=== PATIENT | male | born 1985 | race Hispanic/Latino ===

== ENCOUNTER 2017-12-22 15:04 | Emergency (ER) | payer OTHER, MEDICAID ==
[~2017-12-22 15:04] MED LIST: DOXY100T2 PO; SULF1TAB42 PO; TYL3 PO
[2017-12-22] MEDS ORDERED: HYDROCODONE/ACETAMINOPHEN 5/325 MG TAB ONE (16:01)
== END 2017-12-22 16:23 | disposition home or self-care (01) ==
LOC: EDH 15:04
DX: S29.011A Strain of muscle and tendon of front wall of thorax, initial encounter (principal); F12.10 Cannabis abuse, uncomplicated; Z72.0 Tobacco use; X58.XXXA Exposure to other specified factors, initial encounter; Y93.89 Activity, other specified; Y92.89 Other specified places as the place of occurrence of the external cause; Y99.8 Other external cause status
CPT/HCPCS: 71100; 93005

== ENCOUNTER 2022-11-30 19:21 | Emergency (ER) | payer BC ==
[~2022-11-30] VITALS: Ht 182.9 cm; Wt 163.3 kg
[2022-11-30 19:23] VITALS: BP 185/92
== END 2022-11-30 21:34 | disposition left against medical advice (07) ==
LOC: EDH 19:21
DX: R07.9 Chest pain, unspecified (principal); Z53.21 Procedure and treatment not carried out due to patient leaving prior to being seen by health care provider
CPT/HCPCS: 93005; 99281

== ENCOUNTER 2025-08-03 15:05 | Emergency (ER) | payer BC ==
[~2025-08-03] VITALS: Ht 180.3 cm; Wt 149.7 kg
[2025-08-03 15:14] VITALS: BP 140/95; PULSE 96; RESP 15; TEMP 97.1; O2SAT 98
--- NOTE | 2025-08-03 15:14 | NUR ---
PATIENT IN ROOM
[2025-08-03] MEDS ORDERED: LIDOCAINE HCL 1% 20 ML VIAL INJ STA (15:29)
--- NOTE | 2025-08-03 15:58 | ERN ---
General Chief Complaint: Abscess Stated Complaint: REPACK ABSCESS Time Seen by MD: 15:06 History of Present Illness Initial Comments Mr Kennedy, 39 M with a past medical history of abscess on the back which he had incision and drainage at [facility] 2 days back came to the ED for repacking of the wound. Complaints no fever or night sweats. Timing/Duration: 1/2 hour Severity: mild Associated Symptoms: denies symptoms Allergies: Coded Allergies: No Known Allergies (Verified Allergy, Unknown, 11/05/16) Home Meds Active Scripts Metformin HCl (Metformin HCl) 500 Mg Tablet, 1 TAB PO BID for 30 Days, #60 TAB 0 Refills Prov:MIGUEL MCGRAW MD 08/02/25 Insulin NPH Hum/Reg Insulin Hm (Novolin 70-30 Flexpen) 100 Unit/Ml (70-30) Insuln.pen, 60 UNIT SQ AM for 10 Days, #2 SYRINGE 0 Refills with breakfast Prov:MIGUEL MCGRAW MD 08/02/25 Insulin NPH Hum/Reg Insulin Hm (Novolin 70-30 Flexpen) 100 Unit/Ml (70-30) Insuln.pen, 40 UNIT SQ HS for 15 Days, #2 SYRINGE 0 Refills with dinner Prov:MIGUEL MCGRAW MD 08/02/25 Famotidine (Famotidine) 20 Mg Tablet, 1 TAB PO BID for 10 Days, #20 TAB 0 Refills Take this medication 30 minutes before your meal . Prov:MIGUEL MCGRAW MD 08/02/25 Reported Medications Losartan Potassium (Losartan Potassium) 100 Mg Tablet, 1 TAB PO DAILY for 30 Days, #30 TAB 0 Refills 07/29/25 Atorvastatin Calcium (LIPITOR) 20 Mg Tab, 1 TAB PO HS for 30 Days, #30 TAB 0 Refills 07/29/25 Amlodipine Besylate (Amlodipine Besylate) 10 Mg Tablet, 1 TAB PO DAILY for 30 Days, #30 TAB 0 Refills 07/29/25 Gabapentin (Gabapentin) 100 Mg Capsule, 300 MG PO TID, CAP 07/29/25 Discontinued Reported Medications Aspirin (Aspirin) 81 Mg Tablet, 81 MG PO DAILY, TAB 07/30/25 Metformin HCl (Metformin HCl) 1,000 Mg Tablet, 1 TAB PO BID 02/05/24 Glimepiride (Glimepiride) 4 Mg Tablet, 1 TAB PO DAILY 02/05/24 Discontinued Scripts Acetaminophen with Codeine (Tylenol with Codeine #3) 1 Tab Tab, 1 TAB PO Q4HPRN PRN for PAIN LEVEL 1 TO 3, #15 TAB Prov:BETSY DISLA MD 11/09/16 Doxycycline Hyclate (Doxycycline Hyclate) 100 Mg Tablet, 100 MG PO BID, #20 TAB Prov:BETSY DISLA MD 11/09/16 Sulfamethoxazole/Trimethoprim (Bactrim Ds Tablet) 1 Each Tablet, 1 TAB PO BID, #20 TAB Prov:BETSY DISLA MD 11/09/16 Past Medical History Past Medical History: Diabetes-Type II, High Cholesterol, Hypertension Past Surgical History: Other, None Surgical History Other: ABCESS DRAIN Social History Social History: Smokers, Lives with family Constitutional: (-) chills, (-) diaphoresis, (-) fever, (-) malaise, (-) weakness, (-) other documentation EENTM: (-) eye pain, (-) blurred vision, (-) tearing, (-) double vision, (-) ear pain, (-) ear discharge, (-) nose pain, (-) nose congestion, (-) throat pain, (-) Throat swelling, (-) mouth pain, (-) tooth pain, (-) mouth swelling, (-) other documentation Respiratory: (-) cough, (-) orthopnea, (-) short of breath, (-) stridor, (-) wheezing, (-) other documentation Cardiovascular: (-) chest pain, (-) edema, (-) palpitations, (-) syncope, (-) dyspnea on exertion, (-) other documentation Gastrointestinal/Abdominal: (-) nausea, (-) vomiting, (-) diarrhea, (-) abdo felix pain, (-) abdominal distention, (-) constipation, (-) rectal bleeding, (-) dark stool/melena, (-) other documentation Genitourinary: (-) penile discharge, (-) dysuria, (-) frequency, (-) hematuria, (-) pain, (-) other documentation Musculoskeletal: (-) Neck pain, (-) back pain, (-) Flank Pain, (-) joint pain, (-) joint swelling, (-) muscle pain, (-) muscle stiffness, (-) gout, (-) other documentation Skin: (+) abscess Neuro: (-) altered mental status, (-) headache, (-) syncope, (-) paralysis, (-) numbness, (-) seizure, (-) pre-existing deficit, (-) tremors, (-) weakness, (-) dizziness, (-) slurred speech, (-) vertigo, (-) other documentation Psych: (-) depression, (-) suicidal ideation, (-) anxiety, (-) emotional problems, (-) auditory hallucinations, (-) visual hallucinations Hematologic/Lymphatic: (-) anemia, (-) blood clots, (-) easy bleeding, (-) easy bruising, (-) swollen glands, (-) other documentation Review of Systems: was completed, & the rest were negative. Physical Exam General Appearance: (+) no apparent distress Orientation: (+) alert, (+) oriented x 3 Head/Face Trauma: No Eye: bilateral eye normal inspection Ear, Nose, Throat: (+) hearing grossly normal Respiratory: (+) chest non-tender, (+) lungs clear Heart: (+) regular, (+) no gallop Vascular: (+) no edema Genital: (+) deferred Rectal: (+) deferred Back Comment Abscess on the back that was incised and drained. Had wound packing Extremities: (+) normal range of motion Neurologic/Psychiatric: (+) normal speech Skin: (+) normal color MDM Differential diagnosis: Back abscess The patient presented with back abscess that was incision and drained. Had a wound packing and came to the ED for dressing change. In the ED we have cleaned the wound, repacked and did the dressing change. Patient is stable and can be discharged. Patient can follow up with wound care for further dressing. ED Course Orders Procedure Category Date Status Time Lidocaine Hcl 1% 20ml PHA 08/03/25 Complete Vial (Lidocaine Hc 15:29 Current Medications Medications (Trade) Dose Ordered Sig/Augustina Route PRN Reason Start Time Stop Time Status Last Admin Dose Admin Lidocaine HCl (Lidocaine HCl 1% 20ml Vial) 20 ml ONCE STAT INJ 08/03/25 15:29 08/03/25 15:32 DC Vital Signs Date Time Temp Pulse Resp B/P (MAP) Pulse Ox O2 Delivery O2 Flow Rate FiO2 12/2/25 15:14 97.2 96 15 140/95 98 Room Air* 0 21 08/03/25 15:06 97.2 96 18 140/95 100 Room Air 0 DX & DISP Disposition: Discharge Departure Impression: Primary Impression: Encounter for evaluation of wound Critical Time: 30 minutes Condition: Stable Additional Instructions: FOLLOW-UP WITH PRIMARY CARE PROVIDER IN 1 TO 2 DAYS. TAKE MEDICATIONS DIRECTED HERE IN THE EMERGENCY ROOM. OKAY TO CONTINUE HOME MEDICATIONS UNLESS OTHERWISE DISCUSSED DURING YOUR VISIT IN THE EMERGENCY ROOM TODAY. RETURN TO YOUR NEAREST EMERGENCY ROOM IF SYMPTOMS WORSEN OR IF THERE IS NO IMPROVEMENT. CALL 911 IF YOU NEED IMMEDIATE ASSISTANCE. TAKE TYLENOL [id number] NEEDED AND IF NO CONTRAINDICATIONS ARE PRESENT. INCREASE ORAL HYDRATION. A WOUND CULTURE OR URINE CULTURE WAS ORDERED HERE IN THE EMERGENCY ROOM DEPARTMENT PLEASE FOLLOW-UP WITH PRIMARY CARE PROVIDER AND ADVISE THEM TO GET REPORTS FROM OUR FACILITY. IF YOU HAD ANY KEEGAN WRAP/SPLINTS THAT WERE APPLIED HERE, PLEASE DO NOT REMOVE THEM UNTIL YOU SEE YOUR PRIMARY CARE OR SPECIALTY. Referrals: Referrals: SELF,REFERRAL (PCP) MICK FERNANDES MD, LUIS A MD Time of Disposition: 16:25 OSCAR ZARAGOZA MD Aug 03, 2025 15:58 DEVANTE GASCA MD Aug 03, 2025 16:26
== END 2025-08-03 16:00 | disposition home or self-care (01) ==
LOC: EDH 15:05
DX: Z48.817 Encounter for surgical aftercare following surgery on the skin and subcutaneous tissue (principal); E11.9 Type 2 diabetes mellitus without complications; E78.00 Pure hypercholesterolemia, unspecified; F17.200 Nicotine dependence, unspecified, uncomplicated; I10 Essential (primary) hypertension; Z79.82 Long term (current) use of aspirin; Z79.84 Long term (current) use of oral hypoglycemic drugs; Z79.899 Other long term (current) drug therapy
CPT/HCPCS: 99282